=== PATIENT | male | born 1935 | race Caucasian/White ===

== ENCOUNTER 2017-12-07 10:04 | Emergency (ER) | payer MEDICARE, BC ==
[~2017-12-07] VITALS: Ht 177.8 cm; Wt 91.0 kg
[2017-12-07 10:16] VITALS: BP 124/60; PULSE 76; RESP 16; TEMP 97.6; O2SAT 96
[2017-12-07] MEDS ORDERED: ALLO300T2 PO (12:06)
[2017-12-07] MEDS ORDERED: BENA40TA PO (12:06)
[2017-12-07] MEDS ORDERED: FURO20TA PO (12:06)
[2017-12-07] MEDS ORDERED: CENTCHW4 CHEW (12:06)
[2017-12-07] MEDS ORDERED: PLAV75TA29 PO (12:06)
[2017-12-07] MEDS ORDERED: LIPI10TA PO (12:06)
[2017-12-07] MEDS ORDERED: ASPI81CH6 CHEW (12:06)
[2017-12-07] MEDS ORDERED: METO1TAB42 PO (12:06)
[2017-12-07] MEDS ORDERED: SODIUM CHLORIDE 0.9% FLUSH 10 ML FLUSH IVF PRN (12:15)
--- NOTE | 2017-12-07 12:18 | PD ---
HPI Chief Complaint: Dizziness Time Seen by Provider: 11:56 Travel History International Travel<30 days: No Contact w/Intl Traveler<30days: No Traveled to known affect area: No History of Present Illness HPI The patient is a 82-year-old male who presents to the emergency department via private vehicle for dizziness. The patient notes a 3 day history of intermittent dizziness, worse on Monday morning upon wakening. The patient felt lightheaded and off balance while ambulating. The patient's dizziness then resolved. He was asymptomatic on Monday, however, the dizziness returned today. The dizziness is worse with ambulation, however, he is able to ambulate without walking into [place]. He denies any headache, chest pain, shortness of breath, nausea, vomiting, or abdominal pain. He denies any vertigo. He denies any tinnitus or hearing changes. He does have a history of previous carotid endarterectomy and hypertension, denies any previous history of CVA or TIA. The patient is currently visiting from [facility], has an appointment in the near future with a new physician, Dr. Núñez. PFSH Past Medical History Hx Anticoagulant Therapy: Yes (asa 81mg) Cardiovascular Problems: Yes (Htn on meds, MA) High Cholesterol: Yes Coronary Artery Disease: Yes Diminished Hearing: No Gout: Yes Hypertension: Yes Influenza Vaccination: Yes Past Surgical History Cardiac Surgery: Yes (right carotid endartectomy) Social History Alcohol Use: Yes Tobacco Use: No Allergies-Medications (Allergen,Severity, Reaction): Coded Allergies: No Known Allergies (Unverified , 12/07/17) Reported Meds & Prescriptions Reported Meds & Active Scripts Active Reported Metoprolol Succinate ER 24 HR (Metoprolol Succinate) 25 Mg Tab 25 Mg PO DAILY Furosemide 20 Mg Tab 20 Mg PO DAILY Benazepril (Benazepril HCl) 40 Mg Tab 40 Mg PO DAILY Allopurinol 300 Mg Tab 300 Mg PO DAILY Lipitor (Atorvastatin Calcium) 10 Mg Tab 10 Mg PO HS Plavix (Clopidogrel Bisulfate) 75 Mg Tab 75 Mg PO DAILY Centrum (Multiple Vitamins W/ Minerals) 1 Chew 1 Tab CHEW DAILY Aspirin Low Dose (Aspirin) 81 Mg Chew 81 Mg CHEW DAILY Review of Systems Except as stated in HPI: all other systems reviewed are Neg Eyes: No: Blurred Vision HENT: Positive: Lightheadedness Cardiovascular: No: Chest Pain or Discomfort, Dyspnea on exertion Respiratory: No: Shortness of Breath Gastrointestinal: No: Nausea, Vomiting, Abdominal Pain Neurologic: Positive: Dizziness, No: Focal Abnormalities, Coordination Problem , Ataxia, Headache, Change in Mentation, Slurred Speech, Paresthesia, Sensory Disturbance Physical Exam Narrative GENERAL: Awake, alert, pleasant 82-year-old male who appears his stated age and is in no acute respiratory distress. SKIN: Focused skin assessment warm/dry. HEAD: Atraumatic. Normocephalic. EYES: Pupils equal and round. 3 mm bilateral and reactive. EOMs are intact. ENT: No nasal bleeding or discharge. Upper dentures in place. NECK: Trachea midline. No JVD. Well-healed scar right neck from previous carotid endarterectomy. CARDIOVASCULAR: Regular rate and rhythm. No murmur appreciated. RESPIRATORY: No accessory muscle use. Clear to auscultation. Breath sounds equal bilaterally. GASTROINTESTINAL: Abdomen soft, non-tender, nondistended. No rebound tenderness. MUSCULOSKELETAL: No obvious deformities. No clubbing. No cyanosis. Bilateral lower extremity pitting edema mid calf inferiorly. NEUROLOGICAL: Awake and alert. No obvious cranial nerve deficits. Motor grossly within normal limits. Normal speech. Smile is symmetric. No dysarthria. EOMs are intact. Patient is able to see fingers at a distance of 2 feet without difficulty. No drift of the upper or lower extremities. Finger to nose is normal. Heel to reece is normal. Sensation is symmetric in the arms , legs, and face. PSYCHIATRIC: Appropriate mood and affect; insight and judgment normal. Data Data Last Documented VS Vital Signs Date Time Temp Pulse Resp B/P (MAP) Pulse Ox O2 Delivery O2 Flow Rate FiO2 12/07/17 13:55 92 18 133/79 (97) 97 Room Air 12/07/17 10:16 97.6 Orders Orders Electrocardiogram (12/07/17 12:11) Complete Blood Count With Diff (12/07/17 12:11) Comprehensive Metabolic Panel (12/07/17 12:11) Magnesium (Mg) (12/07/17 12:11) Ckmb (Isoenzyme) Profile (12/07/17 12:11) Troponin I (12/07/17 12:11) Ecg Monitoring (12/07/17 12:11) Iv Access Insert/Monitor (12/07/17 12:11) Oximetry (12/07/17 12:11) Sodium Chloride 0.9% Flush (Ns Flush) (12/07/17 12:15) Orthostatic Vital Signs (12/07/17 12:11) Mri Brain W/O Contrast (12/07/17 ) I-Stat Profile (12/07/17 12:25) Labs Laboratory Tests Test 12/07/17 12:25 White Blood Count 6.5 TH/MM3 Red Blood Count 3.89 MIL/MM3 Hemoglobin 12.9 GM/DL Bedside Hemoglobin G/DL Hematocrit 39.1 % Bedside Hematocrit % Mean Corpuscular Volume 100.4 FL Mean Corpuscular Hemoglobin 33.1 PG Mean Corpuscular Hemoglobin Concent 32.9 % Red Cell Distribution Width 14.4 % Platelet Count 127 TH/MM3 Mean Platelet Volume 8.0 FL Neutrophils (%) (Auto) 57.9 % Lymphocytes (%) (Auto) 25.1 % Monocytes (%) (Auto) 10.3 % Eosinophils (%) (Auto) 4.8 % Basophils (%) (Auto) 1.9 % Neutrophils # (Auto) 3.8 TH/MM3 Lymphocytes # (Auto) 1.6 TH/MM3 Monocytes # (Auto) 0.7 TH/MM3 Eosinophils # (Auto) 0.3 TH/MM3 Basophils # (Auto) 0.1 TH/MM3 CBC Comment DIFF FINAL Differential Comment Bedside Sodium 140 MMOL/L Blood Urea Nitrogen 22 MG/DL Creatinine 1.10 MG/DL Random Glucose 83 MG/DL Total Protein 6.9 GM/DL Albumin 3.9 GM/DL Calcium Level 9.1 MG/DL Magnesium Level 2.3 MG/DL Alkaline Phosphatase 81 U/L Aspartate Amino Transf (AST/SGOT) 16 U/L Alanine Aminotransferase (ALT/SGPT) 18 U/L Total Bilirubin 0.5 MG/DL Sodium Level 140 MEQ/L Potassium Level 4.2 MEQ/L Chloride Level 105 MEQ/L Carbon Dioxide Level 28.8 MEQ/L Bedside Potassium 4.1 MMOL/L Bedside Chloride 102 MMOL/L Anion Gap 6 MEQ/L Bedside Blood Urea Nitrogen 23 MG/DL Bedside Creatinine 1.1 MG/DL Estimat Glomerular Filtration Rate 64 ML/MIN Bedside Glucose 86 MG/DL Total Creatine Kinase 62 U/L Troponin I LESS THAN 0.02 NG/ML MDM Medical Decision Making Medical Screen Exam Complete: Yes Emergency Medical Condition: Yes Medical Record Reviewed: Yes Interpretation(s) EKG reveals normal sinus rhythm with a rate of 65. Q-wave noted in lead II, III , and aVF. Q-wave noted in lead V5, V6, and I. ST elevation noted in V6 that is not seen in V5 or lead I. Laboratory Tests Test 12/07/17 12:25 White Blood Count 6.5 TH/MM3 Red Blood Count 3.89 MIL/MM3 Hemoglobin 12.9 GM/DL Bedside Hemoglobin G/DL Hematocrit 39.1 % Bedside Hematocrit % Mean Corpuscular Volume 100.4 FL Mean Corpuscular Hemoglobin 33.1 PG Mean Corpuscular Hemoglobin Concent 32.9 % Red Cell Distribution Width 14.4 % Platelet Count 127 TH/MM3 Mean Platelet Volume 8.0 FL Neutrophils (%) (Auto) 57.9 % Lymphocytes (%) (Auto) 25.1 % Monocytes (%) (Auto) 10.3 % Eosinophils (%) (Auto) 4.8 % Basophils (%) (Auto) 1.9 % Neutrophils # (Auto) 3.8 TH/MM3 Lymphocytes # (Auto) 1.6 TH/MM3 Monocytes # (Auto) 0.7 TH/MM3 Eosinophils # (Auto) 0.3 TH/MM3 Basophils # (Auto) 0.1 TH/MM3 CBC Comment DIFF FINAL Differential Comment Bedside Sodium 140 MMOL/L Blood Urea Nitrogen 22 MG/DL Creatinine 1.10 MG/DL Random Glucose 83 MG/DL Total Protein 6.9 GM/DL Albumin 3.9 GM/DL Calcium Level 9.1 MG/DL Magnesium Level 2.3 MG/DL Alkaline Phosphatase 81 U/L Aspartate Amino Transf (AST/SGOT) 16 U/L Alanine Aminotransferase (ALT/SGPT) 18 U/L Total Bilirubin 0.5 MG/DL Sodium Level 140 MEQ/L Potassium Level 4.2 MEQ/L Chloride Level 105 MEQ/L Carbon Dioxide Level 28.8 MEQ/L Bedside Potassium 4.1 MMOL/L Bedside Chloride 102 MMOL/L Anion Gap 6 MEQ/L Bedside Blood Urea Nitrogen 23 MG/DL Bedside Creatinine 1.1 MG/DL Estimat Glomerular Filtration Rate 64 ML/MIN Bedside Glucose 86 MG/DL Total Creatine Kinase 62 U/L Troponin I LESS THAN 0.02 NG/ML Last Impressions Brain MRI 12/07/17 0000 Signed Impressions: Service Date/Time: November 13:41 - CONCLUSION: 1. No acute findings. Moderate chronic ischemic changes in the periventricular white matter. Remote small infarct right parietal lobe. No recent infarct, mass effect, hemorrhage or shift. No hydrocephalus. Eric Olson MD Differential Diagnosis Differential diagnosis includes vertigo, labyrinthitis, arrhythmia, hyponatremia , dehydration, orthostatic hypotension, cerebellar infarct, intracranial hemorrhage. Narrative Course IV was established, labs are drawn and sent, and the patient was placed on cardiac telemetry monitoring and continuous pulse oximetry monitoring. EKG was ordered and interpreted. Orthostatic vital signs were obtained. MRI of the brain was obtained to evaluate for possible cerebellar infarct. CBC reveals minimally low hemoglobin 12.9 and platelet of 127. CMP is essentially unremarkable. Troponin is less than 0.02. Telemetry monitoring reveals occasional PVCs, but no evidence of nonsustained V. tach. 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 The patient was able to ambulate to the bathroom. Patient has intermittent dizziness, is advised to follow-up with his primary physician. He will be provided a copy of his MRI results and lab results at discharge. Return if symptoms worsen or progress. Diagnosis Primary Impression: Dizziness Patient Instructions: General Instructions Additional Instructions: Please provide the patient a copy of his MRI results and lab results at discharge. Follow-up with your primary physician. Return if symptoms worsen or progress. Med/Other Pt SpecificInfo: No Change to Meds Disposition: 01 DISCHARGE HOME Condition: Stable Eric Lee MD Dec 07, 2017 12:18
[2017-12-07 12:24] VITALS: BP 123/67; PULSE 76; RESP 18; O2SAT 98
[2017-12-07 12:31] LABS: AUTOMATED NEUTROPHIL # 3.8 TH/MM3 (1.8-7.7); BASOPHIL # 0.1 TH/MM3 (0-0.2); BASOPHIL % 1.9 % (0.0-2.0); EOSINOPHIL # 0.3 TH/MM3 (0-0.4); EOSINOPHIL % 4.8 % (0.0-4.0); HEMATOCRIT 39.1 % (39.0-51.0); HEMOGLOBIN 12.9 GM/DL (13.0-17.0); LYMPH % 25.1 % (9.0-44.0); LYMPHOCYTE # 1.6 TH/MM3 (1.0-4.8); MEAN CELL VOLUME 100.4 FL (80.0-100.0); MEAN CORPUSCULAR HEMOGLOBIN 33.1 PG (27.0-34.0); MEAN CORPUSCULAR HGB CONC 32.9 % (32.0-36.0); MONO % 10.3 % (0.0-8.0); MONOCYTE # 0.7 TH/MM3 (0-0.9); NEUT % 57.9 % (16.0-70.0); PLATELET COUNT 127 TH/MM3 (150-450); RED BLOOD COUNT 3.89 MIL/MM3 (4.50-5.90); RED CELL DISTRIBUTION WIDTH 14.4 % (11.6-17.2); WHITE BLOOD COUNT 6.5 TH/MM3 (4.0-11.0)
[2017-12-07 12:43] VITALS: BP_SYST 128; BP_SYST 129; BP_SYST 140; BP_DIAS 76; BP_DIAS 77; BP_DIAS 78; RESP 18
[2017-12-07 13:21] LABS: CHLORIDE 105 MEQ/L (98-107); SODIUM (NA) 140 MEQ/L (136-145)
[2017-12-07 13:25] LABS: CALCIUM 9.1 MG/DL (8.5-10.1)
[2017-12-07 13:26] LABS: ALBUMIN 3.9 GM/DL (3.4-5.0); BICARBONATE 28.8 MEQ/L (21.0-32.0); BLOOD UREA NITROGEN 22 MG/DL (7-18); GLUCOSE,RANDOM 83 MG/DL (74-106); MAGNESIUM 2.3 MG/DL (1.5-2.5)
[2017-12-07 13:29] LABS: ALT (GPT) 18 U/L (12-78); AST (GOT) 16 U/L (15-37); GLOMERULAR FILTRATION RATE 64 ML/MIN (>89)
[2017-12-07 13:30] LABS: TOTAL BILIRUBIN ADULT 0.5 MG/DL (0.2-1.0)
[2017-12-07 13:31] LABS: TOTAL PROTEIN 6.9 GM/DL (6.4-8.2)
[2017-12-07 13:32] LABS: ALKALINE PHOSPHATASE 81 U/L (45-117)
[2017-12-07 13:34] LABS: TROPONIN I LESS THAN 0.02 NG/ML (0.02-0.05)
[2017-12-07 13:55] VITALS: BP 133/79; PULSE 92; RESP 18; O2SAT 97
--- NOTE | 2017-12-07 14:02 | RADRPT ---
EXAM DATE/TIME: 12/07/2017 13:41 [facility] COMPARISON: No previous studies available for comparison. INDICATIONS : Dizziness. MEDICAL HISTORY : Hypertension. SURGICAL HISTORY : Carotid endarterectomy. ENCOUNTER: Initial ACUITY: 3 day PAIN SCORE: 0/10 LOCATION: Head. TECHNIQUE: Multiplanar, multisequence MRI of the brain was performed without contrast. FINDINGS: CEREBRUM: The ventricles are normal for age. No evidence of midline shift, mass lesion, hemorrhage or acute in farction. No extraaxial fluid collections are seen. The pituitary gland and suprasellar cistern are normal in configuration. WHITE MATTER: Moderate signal abnormalities are seen in the white matter. POSTERIOR FOSSA: The cerebellum and brainstem are intact. The 4th ventricle is midline. The cerebellopontine angle is unremarkable. The cerebellar tonsils are normal in position. DIFFUSION IMAGING: No focal areas of restricted diffusion are seen. No evidence of acute infarction. EXTRACRANIAL: The visualized portions of the orbits and paranasal sinuses are unremarkable. CONCLUSION: 1. No acute findings. Moderate chronic ischemic changes in the periventricular white matter. Remote s mall infarct right parietal lobe. No recent infarct, mass effect, hemorrhage or shift. No hydrocephal us. Eric Olson MD on December 07, 2017 at 13:57 Board Certified Radiologist. This report was verified electronically.
--- NOTE | 2017-12-08 14:31 | EKG ---
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 DOCTOR: Charanjit Stacy Interpretating Date/Time 12/08/2017 14:29:39
== END 2017-12-07 14:44 | disposition home or self-care (01) ==
LOC: PHED 10:04
DX: R42 Dizziness and giddiness (principal); I10 Essential (primary) hypertension; R94.31 Abnormal electrocardiogram [ECG] [EKG]; Z79.01 Long term (current) use of anticoagulants
CPT/HCPCS: 70551; 80048; 80053; 82550; 83735; 84484; 85025; 93005; 99285